=== PATIENT | female | born 1970 | race Two or more races ===

== ENCOUNTER 2017-09-23 08:01 | Emergency (ER) | payer OTHER ==
[~2017-09-23] VITALS: Ht 167.6 cm; Wt 68.5 kg
--- NOTE | 2017-09-23 08:07 | NUR ---
AAOX3, BIB FAMILY C/O L FLANK PAIN S/P HYSTERECTOMY X 10 DAYS AGO, CAME IN WITH THIBODEAUX CATHETER IN PLACE. RR IS EVEN AND UNLABORED WITH NAD NOTED. SKIN IS WARM AND DRY. AWAITING MD FOR EVAL.
--- NOTE | 2017-09-23 08:13 | NUR ---
DR TALBERT AT BS FOR EVAL.
[2017-09-23] MEDS ORDERED: ONDANSETRON HCL/PF 4 MG/2 ML VIAL ONE (08:21)
[2017-09-23] MEDS ORDERED: HYDROMORPHONE INJ 0.5 MG/0.5 ML SYRINGE ONE (08:21)
--- NOTE | 2017-09-23 08:44 | NUR ---
URINE OBTAINED SENT TO THE LAB.
--- NOTE | 2017-09-23 08:46 | NUR ---
LOG SORTER AT
[2017-09-23 08:50] LABS: BASOPHILS # (AUTO) 0.1 /CMM (0.0-0.2); BASOPHILS % (AUTO) 0.5 % (0.0-2.0); EOSINOPHILS # (AUTO) 0.8 /CMM (0.0-0.7); HEMATOCRIT 39 % (33-45); HEMOGLOBIN 13.3 g/dL (11.5-14.8); LYMPHOCYTES # (AUTO) 1.3 /CMM (0.8-4.8); LYMPHOCYTES % (AUTO) 7.7 % (20.0-44.0); MEAN CORPUSCULAR HEMOGLOBIN 30 PG (26.0-33.0); MEAN CORPUSCULAR HGB CONC 35 g/dl (31.0-36.0); MEAN CORPUSCULAR VOLUME 87 fL (82-100); MONOCYTES # (AUTO) 0.8 /CMM (0.1-1.30); MONOCYTES % (AUTO) 5.1 % (2.0-12.0); NEUTROPHILS # (AUTO) 13.3 /CMM (1.8-8.9); NEUTROPHILS % (AUTO) 81.7 % (43.0-81.0); PLATELET COUNT (AUTO) 299 /CMM (150-450); RDW COEFFICIENT OF VARIATION 13.2 (11.5-15.0); RED BLOOD CELL COUNT(AUTO) 4.42 MIL/uL (4.0-5.2); WHITE BLOOD COUNT (AUTO) 16.3 K/uL (4.3-11.0)
[2017-09-23 08:50] LABS: APPEARANCE,URINE CLOUDY (CLEAR); BILIRUBIN,URINE 1+ (NEGATIVE); BLOOD, URINE 3+ Ery/uL (NEGATIVE); COLOR,URINE DARK YELLO (YELLOW); KETONES,URINE TRACE (NEGATIVE); LEUKOCYTE ESTERASE ,URINE 1+ (NEGATIVE); NITRITE, URINE NEGATIVE (NEGATIVE); PH,URINE 5.5 (5.0-8.0); PROTEIN,URINE 2+ mg/dl (NEGATIVE); UGLUCOSE NEGATIVE (NEGATIVE); UROBILINOGEN,URINE 0.2 EU/dL (0.2)
[2017-09-23] MEDS ORDERED: ONDANSETRON HCL/PF 4 MG/2 ML VIAL IVP ONE (09:00)
[2017-09-23] MEDS ORDERED: HYDROMORPHONE INJ 2 MG/ML DISP.SYRIN IV ONE (09:00)
[2017-09-23 09:14] LABS: BACTERIA,URINE Moderate /HPF (None Seen); SQUAMOUS EPITHELIAL CELL,UR Few /HPF (None Seen)
[2017-09-23 09:15] LABS: INR 1.09 (0.87-1.13)
[2017-09-23 09:15] LABS: RBC,URINE 51-80 /HPF (0-2)
[2017-09-23 09:16] LABS: MUCUS,URINE Moderate /LPF (None Seen)
[2017-09-23 09:21] LABS: CALCIUM, SERUM 9.4 mg/dL (8.5-10.1); CREATININE 0.6 mg/dL (0.6-1.3); POTASSIUM 4.4 mmol/L (3.5-5.1)
[2017-09-23 09:26] LABS: ALBUMIN 3.2 g/dL (3.4-5.0); BILIRUBIN,DIRECT 0.1 mg/dL (0.0-0.2); BILIRUBIN,TOTAL 0.9 mg/dL (0.2-1.0); TOTAL PROTEIN, SERUM 7.3 g/dL (6.4-8.2)
[2017-09-23] MEDS ORDERED: CEFTRIAXONE 1GM BAG (ER ONLY) 1 GM/50 ML PIGGYBACK IV ONE (10:30)
[2017-09-23] MEDS ORDERED: CEFTRIAXONE 1GM BAG (ER ONLY) 50 ML IV ONE (10:34)
--- NOTE | 2017-09-23 10:56 | NUR ---
IV removed. Catheter intact and site benign. Pressure and 4x4 applied to site. No bleeding noted.
[2017-09-23 11:08] VITALS: BP 124/75
--- NOTE | 2017-09-23 11:10 | NUR ---
PATIENT WAS ABLE TO VOID IN THE RESTROOM. DR TALBERT MADE AWARE.
--- NOTE | 2017-09-23 11:15 | NUR ---
Patient discharged to home in stable condition. Written and verbal after care instructions given. Patient verbalizes understanding of instruction.
== END 2017-09-23 11:09 | disposition home or self-care (01) ==
LOC: ER 08:02
DX: S39.012A Strain of muscle, fascia and tendon of lower back, initial encounter (principal); N39.0 Urinary tract infection, site not specified; N13.30 Unspecified hydronephrosis; C53.9 Malignant neoplasm of cervix uteri, unspecified; G43.909 Migraine, unspecified, not intractable, without status migrainosus; Z90.710 Acquired absence of both cervix and uterus; X58.XXXA Exposure to other specified factors, initial encounter; Y93.89 Activity, other specified; Y92.89 Other specified places as the place of occurrence of the external cause; Y99.8 Other external cause status
CPT/HCPCS: 36415; 71045; 76700; 80048; 80076; 81001; 83690; 85025; 85730; 87086; 96365; 96375; 99285; A4606; J0696; J2405; Z7610; 81000-TC

== ENCOUNTER 2018-01-10 21:17 | Emergency (ER) | payer OTHER ==
[~2018-01-10] VITALS: Ht 170.2 cm; Wt 69.9 kg
--- NOTE | 2018-01-10 21:25 | NUR ---
BIBFAMILY C/O BURNING LIKE PAIN TO PELVIC. CHEM RADIATION ON MONDAY RECENT HYSTERECTOMY ON SEP 2017. NAD NOTED, VSS, RESP EVEN AND UNLABORED, PT WAS PUT ON MONITOR, AT BS.
[2018-01-10] MEDS ORDERED: MORPHINE SULFATE INJ 4 MG/ML DISP.SYRIN ONE (21:45)
[2018-01-10] MEDS ORDERED: ONDANSETRON HCL/PF 4 MG/2 ML VIAL ONE (21:45)
[2018-01-10 22:02] LABS: BASOPHILS % (AUTO) 0.2 % (0.0-2.0); EOSINOPHILS % (AUTO) 1.4 % (0.0-6.0); HEMATOCRIT 30 % (33-45); HEMOGLOBIN 10.5 g/dL (11.5-14.8); LYMPHOCYTES # (AUTO) 0.2 /CMM (0.8-4.8); LYMPHOCYTES % (AUTO) 5.2 % (20.0-44.0); MEAN CORPUSCULAR HGB CONC 36 g/dl (31.0-36.0); MEAN CORPUSCULAR VOLUME 84 fL (82-100); MONOCYTES # (AUTO) 0.3 /CMM (0.1-1.30); MONOCYTES % (AUTO) 8.3 % (2.0-12.0); NEUTROPHILS # (AUTO) 3.5 /CMM (1.8-8.9); NEUTROPHILS % (AUTO) 84.9 % (43.0-81.0); PLATELET COUNT (AUTO) 159 /CMM (150-450); RDW COEFFICIENT OF VARIATION 15.9 (11.5-15.0); RED BLOOD CELL COUNT(AUTO) 3.54 MIL/uL (4.0-5.2); WHITE BLOOD COUNT (AUTO) 4.1 K/uL (4.3-11.0)
[2018-01-10] MEDS: IV NS 0.9% 500 ML BAG IV ONE (22:09)
[2018-01-10] MEDS: ONDANSETRON HCL/PF 4 MG/2 ML VIAL IVP ONE (22:10)
[2018-01-10] MEDS: MORPHINE SULFATE INJ 2 MG/ML DISP.SYRIN IV ONE (22:10)
[2018-01-10 22:14] LABS: CALCIUM, SERUM 8.8 mg/dL (8.5-10.1); CREATININE 0.8 mg/dL (0.6-1.3); POTASSIUM 3.2 mmol/L (3.5-5.1)
[2018-01-10 22:20] LABS: ALBUMIN 3.5 g/dL (3.4-5.0); BILIRUBIN,DIRECT 0.1 mg/dL (0.0-0.2); BILIRUBIN,TOTAL 0.7 mg/dL (0.2-1.0); TOTAL PROTEIN, SERUM 7.3 g/dL (6.4-8.2)
[2018-01-10 23:11] LABS: APPEARANCE,URINE SL CLOUDY (CLEAR); BILIRUBIN,URINE NEGATIVE (NEGATIVE); BLOOD, URINE 2+ Ery/uL (NEGATIVE); COLOR,URINE YELLOW (YELLOW); KETONES,URINE 1+ (NEGATIVE); LEUKOCYTE ESTERASE ,URINE 2+ (NEGATIVE); NITRITE, URINE POSITIVE (NEGATIVE); PH,URINE 6.5 (5.0-8.0); PROTEIN,URINE 2+ mg/dl (NEGATIVE); UGLUCOSE NEGATIVE (NEGATIVE); UROBILINOGEN,URINE 0.2 EU/dL (0.2)
[2018-01-10 23:20] LABS: BACTERIA,URINE Moderate /HPF (None Seen); SQUAMOUS EPITHELIAL CELL,UR Few /HPF (None Seen); WBC,URINE 21-50 /HPF (0-3)
--- NOTE | 2018-01-10 23:42 | NUR ---
Patient discharged to home in stable condition. Written and verbal after care instructions given. Patient verbalizes understanding of instruction.IV removed. Catheter intact and site benign. Pressure and 4x4 applied to site. No bleeding noted. VSS UPON DISCHARGE
[2018-01-10 23:43] VITALS: BP 117/65
== END 2018-01-10 23:44 | disposition home or self-care (01) ==
LOC: ER 21:21
DX: N39.0 Urinary tract infection, site not specified (principal); K59.00 Constipation, unspecified; E87.6 Hypokalemia; G43.909 Migraine, unspecified, not intractable, without status migrainosus; Z85.41 Personal history of malignant neoplasm of cervix uteri; Z92.3 Personal history of irradiation; Z90.710 Acquired absence of both cervix and uterus
CPT/HCPCS: 36415; 80048-TC; 80076-TC; 81000-TC; 85025-TC; 87086-TC; 87186-TC; A4606; J2270; J2405; J7040; Z7610

== ENCOUNTER 2018-07-05 12:42 | Emergency (ER) | payer OTHER ==
[~2018-07-05] VITALS: Ht 167.6 cm; Wt 72.6 kg
--- NOTE | 2018-07-05 12:42 | NUR ---
PT BIB FAMILY C/O LEFT SIDED CP, NO C/O OF DIZZINESS, NO SOB, RESPIRATIONS EVEN AND UNLABORED, NAD NOTED, VSS, PENDING MD GARG.
[2018-07-05 13:22] LABS: BASOPHILS % (AUTO) 0.9 % (0.0-2.0); EOSINOPHILS % (AUTO) 3.9 % (0.0-6.0); HEMATOCRIT 37 % (33-45); HEMOGLOBIN 12.5 g/dL (11.5-14.8); LYMPHOCYTES # (AUTO) 1.1 /CMM (0.8-4.8); LYMPHOCYTES % (AUTO) 22.4 % (20.0-44.0); MEAN CORPUSCULAR HGB CONC 34 g/dl (31.0-36.0); MEAN CORPUSCULAR VOLUME 89 fL (82-100); MONOCYTES # (AUTO) 0.4 /CMM (0.1-1.30); MONOCYTES % (AUTO) 8.5 % (2.0-12.0); NEUTROPHILS # (AUTO) 3.3 /CMM (1.8-8.9); NEUTROPHILS % (AUTO) 64.3 % (43.0-81.0); PLATELET COUNT (AUTO) 213 /CMM (150-450); RED BLOOD CELL COUNT(AUTO) 4.13 MIL/uL (4.0-5.2); WHITE BLOOD COUNT (AUTO) 5.1 K/uL (4.3-11.0)
[2018-07-05 13:52] LABS: CALCIUM, SERUM 9.3 mg/dL (8.5-10.1); CARBON DIOXIDE 27 mmol/L (21-32); CHLORIDE 105 mmol/L (98-107); CREATININE 0.7 mg/dL (0.6-1.3); GLUCOSE 91 mg/dL (74-106); POTASSIUM 3.9 mmol/L (3.5-5.1); SODIUM SERUM 143 mmol/L (136-145); UREA NITROGEN, BLOOD 13 mg/dL (7-18)
[2018-07-05 14:05] LABS: B-TYPE NATRIURETIC PEPTIDE 103 PG/ML (0-125)
[2018-07-05] MEDS ORDERED: IBUPROFEN 600 MG TABLET PO ONE ×2 (14:57→15:00)
--- NOTE | 2018-07-05 15:00 | NUR ---
Patient discharged to home in stable condition. Written and verbal after care instructions given. Patient verbalizes understanding of instruction.
[2018-07-05 15:35] VITALS: BP 130/75
== END 2018-07-05 15:37 | disposition home or self-care (01) ==
LOC: ER 12:44
DX: M94.0 Chondrocostal junction syndrome [Tietze] (principal); G43.909 Migraine, unspecified, not intractable, without status migrainosus; Z85.41 Personal history of malignant neoplasm of cervix uteri; Z90.710 Acquired absence of both cervix and uterus
CPT/HCPCS: 36415; 71046; 80048; 83880; 84484; 85025; 85378; 93005; 99284; A4606; Z7610

== ENCOUNTER 2019-09-17 19:20 | Emergency (ER) | payer OTHER ==
[~2019-09-17] VITALS: Ht 162.6 cm; Wt 77.1 kg
--- NOTE | 2019-09-17 19:25 | NUR ---
BIBDAUGHTER C/O MIDSTERNAL CHEST PAIN X2 DAYS.ALSO C/O L SIDE PAIN X2 WEEKS -TRAUMA, +SOB, +HEADACHE, -NAUSEA/VOMITTING
--- NOTE | 2019-09-17 19:29 | NUR ---
BALA GARVIN PAC AT THE BED SIDE
--- NOTE | 2019-09-17 19:40 | NUR ---
L HAND 20G IV STARTED. BLOOD DRAWN AND SENT TO THE LAB
[2019-09-17] MEDS ORDERED: IBUPROFEN 600 MG TABLET PO ONE ×2 (19:44→20:00)
[2019-09-17 19:50] LABS: BASOPHILS # (AUTO) 0.1 /CMM (0.0-0.2); BASOPHILS % (AUTO) 1.3 % (0.0-2.0); EOSINOPHILS % (AUTO) 3.3 % (0.0-6.0); HEMATOCRIT 40 % (33-45); HEMOGLOBIN 13.6 g/dL (11.5-14.8); LYMPHOCYTES # (AUTO) 2.2 /CMM (0.8-4.8); LYMPHOCYTES % (AUTO) 33.2 % (20.0-44.0); MEAN CORPUSCULAR HGB CONC 34 g/dl (31.0-36.0); MEAN CORPUSCULAR VOLUME 87 fL (82-100); MONOCYTES # (AUTO) 0.6 /CMM (0.1-1.30); MONOCYTES % (AUTO) 8.6 % (2.0-12.0); NEUTROPHILS # (AUTO) 3.6 /CMM (1.8-8.9); NEUTROPHILS % (AUTO) 53.6 % (43.0-81.0); PLATELET COUNT (AUTO) 249 /CMM (150-450); RED BLOOD CELL COUNT(AUTO) 4.56 MIL/uL (4.0-5.2); WHITE BLOOD COUNT (AUTO) 6.7 K/uL (4.3-11.0)
--- NOTE | 2019-09-17 19:50 | NUR ---
PT SIGNED THE WAIVER FORM. REPORTED HYSTRECTOMY 2 YRS AGO. RADIOLOGY MADE AWARE TO PROCEED W/ THE CXR
[2019-09-17 19:59] LABS: CALCIUM, SERUM 9.9 mg/dL (8.5-10.1); CARBON DIOXIDE 27 mmol/L (21-32); CHLORIDE 105 mmol/L (98-107); CREATININE 0.8 mg/dL (0.6-1.3); GLUCOSE 94 mg/dL (74-106); POTASSIUM 3.6 mmol/L (3.5-5.1); SODIUM SERUM 142 mmol/L (136-145); UREA NITROGEN, BLOOD 16 mg/dL (7-18)
[2019-09-17 20:05] LABS: ALANINE AMINOTRANSFERASE 24 U/L (12-78); ALBUMIN 3.9 g/dL (3.4-5.0); ALKALINE PHOSPHATASE 84 U/L (46-116); ASPARTATE AMINOTRANSFERASE 16 U/L (15-37); BILIRUBIN,DIRECT 0.1 mg/dL (0.0-0.2); BILIRUBIN,TOTAL 0.4 mg/dL (0.2-1.0); TOTAL PROTEIN, SERUM 7.5 g/dL (6.4-8.2)
[2019-09-17 21:08] VITALS: BP 128/82
--- NOTE | 2019-09-17 21:08 | NUR ---
Patient discharged to home in stable condition. Written and verbal after care instructions given. Patient verbalizes understanding of instruction.IV removed. Catheter intact and site benign. Pressure and 4x4 applied to site. No bleeding noted.Pt ambulatory with a steady gait
== END 2019-09-17 21:09 | disposition home or self-care (01) ==
LOC: ER 19:23
DX: R07.89 Other chest pain (principal); G43.909 Migraine, unspecified, not intractable, without status migrainosus; Z85.41 Personal history of malignant neoplasm of cervix uteri; Z90.710 Acquired absence of both cervix and uterus
CPT/HCPCS: 36415; 71045-TC; 80048-TC; 80076-TC; 83690-TC; 84484-TC; 85025-TC

== ENCOUNTER 2020-11-12 10:47 | Inpatient (IN) | payer OTHER ==
[~2020-11-12] VITALS: Ht 167.6 cm; Wt 81.8 kg
[2020-11-12] MEDS ORDERED: ONDANSETRON HCL/PF - ER 4 MG/2 ML VIAL IV ONE ×2 (11:30→13:30)
--- NOTE | 2020-11-12 11:46 | NUR ---
BLOOD SPECIMEN COLLECTED AND SENT TO THE LAB.
--- NOTE | 2020-11-12 11:47 | NUR ---
THE PATIENT IS BIB HER SON FOR RLQ PAIN AND NAUSEA SINCE THIS MORNING. THE PATIENT RATES PAIN 10/10. THE PATIENT IS ALERT AND ORIENTED X4. DENIES SOB. RESPIRATION REGULAR AND UNLABORED. THE PATIENT IS IN ER BED #7. WARM BLANKET PROVIDED FOR COMFORT. WILL CONTINUE TO MONITOR.
--- NOTE | 2020-11-12 11:48 | NUR ---
THE PATIENT REFUSES ANY PAIN MEDICATION AT THIS TIME DESPITE THAT DR FLETCHER OFFERED.
[2020-11-12] MEDS ORDERED: ONDANSETRON HCL/PF 4 MG/2 ML VIAL ONE ×2 (11:50→13:18)
[2020-11-12 11:53] LABS: BASOPHILS # (AUTO) 0.1 /CMM (0.0-0.2); BASOPHILS % (AUTO) 0.5 % (0.0-2.0); EOSINOPHILS % (AUTO) 0.2 % (0.0-6.0); HEMATOCRIT 40 % (33-45); HEMOGLOBIN 13.6 g/dL (11.5-14.8); LYMPHOCYTES % (AUTO) 7.8 % (20.0-44.0); MEAN CORPUSCULAR HGB CONC 34 g/dl (31.0-36.0); MEAN CORPUSCULAR VOLUME 89 fL (82-100); MONOCYTES # (AUTO) 0.4 /CMM (0.1-1.30); MONOCYTES % (AUTO) 3.6 % (2.0-12.0); NEUTROPHILS # (AUTO) 10.9 /CMM (1.8-8.9); NEUTROPHILS % (AUTO) 87.9 % (43.0-81.0); PLATELET COUNT (AUTO) 231 /CMM (150-450); RED BLOOD CELL COUNT(AUTO) 4.54 MIL/uL (4.0-5.2); WHITE BLOOD COUNT (AUTO) 12.4 K/uL (4.3-11.0)
[2020-11-12 12:06] LABS: CALCIUM, SERUM 9.7 mg/dL (8.5-10.1); CARBON DIOXIDE 24 mmol/L (21-32); CHLORIDE 105 mmol/L (98-107); CREATININE 0.7 mg/dL (0.6-1.3); GLUCOSE 112 mg/dL (74-106); POTASSIUM 3.8 mmol/L (3.5-5.1); SODIUM SERUM 140 mmol/L (136-145); UREA NITROGEN, BLOOD 13 mg/dL (7-18)
[2020-11-12 12:13] LABS: ALANINE AMINOTRANSFERASE 26 U/L (12-78); ALBUMIN 3.8 g/dL (3.4-5.0); ALKALINE PHOSPHATASE 66 U/L (46-116); ASPARTATE AMINOTRANSFERASE 20 U/L (15-37); BILIRUBIN,DIRECT 0.1 mg/dL (0.0-0.2); BILIRUBIN,TOTAL 0.6 mg/dL (0.2-1.0); LIPASE 123 U/L (73-393); TOTAL PROTEIN, SERUM 7.4 g/dL (6.4-8.2)
[2020-11-12] MEDS ORDERED: OMEP20CA15 PO (12:59)
[2020-11-12] MEDS ORDERED: PIPERACILLIN /TAZOBACTAM 3.375 G in IV D5W 50 ML IV ONE (13:00)
[2020-11-12] MEDS ORDERED: MORPHINE SULFATE INJ 4 MG/ML DISP.SYRIN ONE (13:19)
--- NOTE | 2020-11-12 13:28 | NUR ---
MORPHINE 4 MG IV, ZOFRAN 4 MG IV AND NS 1000 ML WIDE OPEN ORDERED BY DR FLETCHER. THE ORDER ARE READ BACK, VERIFIED. NOTED AND CARRIED OUT.
[2020-11-12] MEDS ORDERED: IV NS 0.9% 1,000 ML IV ONE (13:30)
[2020-11-12] MEDS ORDERED: MORPHINE SULFATE INJ 2 MG/ML DISP.SYRIN IV ONE (13:30)
--- NOTE | 2020-11-12 14:33 | NUR ---
DR SMITH`S ADMINISTRATIVE HEARING OFFICER (RJ) IS AT THE BEDSIDE.
--- NOTE | 2020-11-12 14:44 | NUR ---
Informed electrician supervisor substation that patient is covid negative and need bed. Agitator Operator will inform bed number once available.
--- NOTE | 2020-11-12 15:20 | NUR ---
report given to lamine lópez for abraham
--- NOTE | 2020-11-12 15:23 | NUR ---
The patient is tarnsfered to bed 313 in stable condition.
[2020-11-12 15:40] VITALS: BP 136/58
--- NOTE | 2020-11-12 15:40 | NUR ---
MS RN NOTES ADMITTED PATIENT FROM EMERGENCY ROOM, REPORT GIVEN REBECCA DICKERSON. PATIENT ALERT AND ORIENTED X4, NO ACUTE DISTRESS NOTED, DENIED PAIN AT THIS TIME. IV ACCESS PATENT AND INTACT, NO REDNESS, NO SWELLING. PATIENT ORIENTED TO THE ROOM, SHOWED PATIENT HOW TO USE CALL LIGHT AND PLACED WITHIN REACH. NEEDS ATTENDED. SAFETY MEASURES IN PLACE, BED LOCKED IN LOWEST POSITION. WILL CONTINUE TO MONITOR
--- NOTE | 2020-11-12 16:15 | NUR ---
MS RN NOTES NOTIFIED DR. HERNANDEZ OF PATIENT ARRIVAL IN UNIT AND NEEDS ADMISSION ORDERS AND MED RECONCILIATION NEEDS TO BE DONE.
[2020-11-12] MEDS ORDERED: MAG HYDROX/AL HYDROX/SIMETH 30 ML UDC PO PRN (17:00)
[2020-11-12] MEDS ORDERED: ACETAMINOPHEN 325 MG TABLET PO PRN (17:00)
[2020-11-12] MEDS ORDERED: ZOLPIDEM TARTRATE 5 MG TABLET PO PRN (17:00)
[2020-11-12] MEDS ORDERED: Z GUARD REMEDY 2 OZ OINT TP PRN (17:00)
[2020-11-12] MEDS ORDERED: HYDROCODONE/APAP 5/325MG TABLET PO PRN (17:00)
[2020-11-12] MEDS ORDERED: MAGNESIUM HYDROXIDE 30 ML UDC PO PRN (17:00)
[2020-11-12] MEDS: IV D5/0.45 NACL 1,000 ML IV PRN (17:19)
[2020-11-12] MEDS: PIPERACILLIN /TAZOBACTAM 3.375 G in IV D5W 100 ML IV SCH (18:17)
--- NOTE | 2020-11-12 19:00 | NUR ---
MS CLOSING NOTES PATIENT RESTING IN ROOM, ALERT AND ORIENTED X 4. NO ACUTE DISTRESS OR SHORTNESS OF BREATH NOTED. IV CLEAN, DRY AND INTACT AND INFUSING. SAFETY MEASURES IN PLACE, BED LOCKED IN LOWEST POSITION AND CALL LIGHT WITHIN REACH. WILL ENDORSE TO IT APPLICATION ADMINISTRATOR NURSE FOR CONTINUITY OF CARE.
--- NOTE | 2020-11-12 19:30 | NUR ---
MS RN OPENING NOTE RECEIVED PATIENT IN BED. A/OX4. TOLERATING ROOM AIR. RESPIRATIONS ARE EVEN AND UNLABORED. NO S/S SOB NOTED. C/O PAIN IN ABDOMEN WILL ADMINISTER PAIN MEDICATION. IN NO APPARENT DISTRESS. IV ACCESS IN LEFT HAND #20 RUNNING D51/2NS@125ML/HR. BED IS LOW AND LOCKED, HOB ELEVATED IN SEMI FOWLERS, SIDE RAILS UP X2, CALL LIGHT WITHIN REACH. WILL CONTINUE TO MONITOR THROUGHOUT SHIFT.
[2020-11-12] MEDS: ONDANSETRON HCL/PF 4 MG/2 ML VIAL IVP PRN (19:38)
[2020-11-12] MEDS: HYDROMORPHONE INJ 2 MG/ML DISP.SYRIN IV PRN (19:45)
[2020-11-12 20:00] VITALS: BP 115/75
[2020-11-13] VITALS: BP 126/75
[2020-11-13] MEDS: PIPERACILLIN /TAZOBACTAM 3.375 G in IV D5W 100 ML IV SCH ×3 (01:50→17:47)
[2020-11-13] MEDS: HYDROMORPHONE INJ 2 MG/ML DISP.SYRIN IV PRN (02:13)
[2020-11-13 04:00] VITALS: BP 119/69
[2020-11-13 06:15] LABS: RED BLOOD CELL COUNT(AUTO) 4.38 MIL/uL (4.0-5.2); WHITE BLOOD COUNT (AUTO) 14.2 K/uL (4.3-11.0)
[2020-11-13 06:16] LABS: BASOPHILS % (AUTO) 0.1 % (0.0-2.0); HEMATOCRIT 39 % (33-45); HEMOGLOBIN 12.7 g/dL (11.5-14.8); LYMPHOCYTES % (AUTO) 7.3 % (20.0-44.0); MEAN CORPUSCULAR HGB CONC 33 g/dl (31.0-36.0); MEAN CORPUSCULAR VOLUME 88 fL (82-100); MONOCYTES # (AUTO) 0.6 /CMM (0.1-1.30); MONOCYTES % (AUTO) 4.1 % (2.0-12.0); NEUTROPHILS # (AUTO) 12.5 /CMM (1.8-8.9); NEUTROPHILS % (AUTO) 88.5 % (43.0-81.0); PLATELET COUNT (AUTO) 227 /CMM (150-450)
[2020-11-13] MEDS: IV D5/0.45 NACL 1,000 ML IV PRN ×2 (06:35→17:30)
[2020-11-13 06:36] LABS: CALCIUM, SERUM 8.6 mg/dL (8.5-10.1); CREATININE 0.7 mg/dL (0.6-1.3); MAGNESIUM 1.9 mg/dL (1.8-2.4); PHOSPHORUS 3.2 mg/dL (2.5-4.9); POTASSIUM 3.3 mmol/L (3.5-5.1)
--- NOTE | 2020-11-13 06:51 | NUR ---
MS RN CLOSING NOTE PATIENT IN BED. A/OX4. TOLERATING ROOM AIR. NO RESP DISTRESS. MANAGED PAIN WITH DILAUDID THROUGHOUT SHIFT. PATIENT DID EXPERIENCE N EPISODE OF GREEN LIQUID EMESIS , MANAGED WITH ZOFRAN. IV ACCESS IN LEFT HAND #20 RUNNING D51/2NS@125ML/HR. BED IS LOW AND LOCKED, HOB ELEVATED IN SEMI FOWLERS, SIDE RAILS UP X2, CALL LIGHT WITHIN REACH. WILL ENDORSE TO ONCOMING SHIFT.
--- NOTE | 2020-11-13 07:02 | NUR ---
MS RN OPENING NOTE RECEIVED PATIENT AWAKE IN BED. A/OX4. PT STABLE ON ROOM AIR.NO S/S SOB NOTED. NO S/S OF RESPIRATORY DISTRESS. PT IS AMBULATORY WITH BRP. PT HAS NO C/O PAIN AT THIS TIME. IV ACCESS IN LEFT HAND #20 RUNNING D5 1/2 NS@ 125 ML/HR. IV IS INTACT AND PATENT. SAFETY MEASURES MAINTAINED. BED IN LOWEST LOCKED POSITION. HOB ELEVATED, SIDE RAILS UP X2, CALL LIGHT AND TABLE WITHIN REACH. WILL CONTINUE WITH PLAN OF CARE.
[2020-11-13 08:00] VITALS: BP 125/75
--- NOTE | 2020-11-13 09:19 | NUR ---
PT C/O OF ACHING MIGRAINE HEADACHE ON A SCALE OF 9/10. VS BP 125/75, HR 86, RR 20, T 98.8, SPO2 94%. PT REFUSED PAIN MEDICATION STATING "I TAKE SUMATRIPTAN 50MG PO PRN FOR MIGRAINE." DR FUNG MADE AWARE. RECEIVED ORDERS FROM DR FUNG TO CONTINUE SUMATRIPTAN. ORDERS CARRIED OUT WILL CONTINUE TO MONITOR
--- NOTE | 2020-11-13 09:24 | NUR ---
PRISCILA ([phone]), PT'S DAUGHTER BROUGHT SUMATRIPTAN 50MG (5 TABLETS) AND ADVIL (7 TABLETS). MEDICATION GIVEN TO PHARMACY. WILL CONTINUE WITH PLAN OF CARE
[2020-11-13] MEDS: SUMATRIPTAN SUCCINATE 25 MG TABLET PO PRN (09:46)
--- NOTE | 2020-11-13 10:35 | NUR ---
PT'S POTASSIUM 3.3. RECEIVED ORDERS FROM DR. FUNG TO ADMINISTER KCL 20 MEQ IV. ORDERS READ BACK AND CARRIED OUT. WILL CONTINUE TO MONITOR.
[2020-11-13] MEDS ORDERED: POTASSIUM CHLORIDE 10 MEQ/50 ML PREMIXED IVPB FOR PERIPHERAL LINE IV SCH ×2 (11:00)
[2020-11-13] MEDS ORDERED: POTASSIUM CL. PREMIX PERIPHER. 50 ML IV SCH (11:00)
[2020-11-13] MEDS: POTASSIUM CL. PREMIX PERIPHER. 50 ML IV SCH ×2 (11:25→12:39)
[2020-11-13] MEDS ORDERED: ANESTHESIA TRAY IN PYXIS 1 EA TRAY MC ONE (12:51)
[2020-11-13] MEDS ORDERED: BUPIVACAINE MPF 0.5% W/EPI INJ 30 ML VIAL ONE (12:52)
[2020-11-13] MEDS ORDERED: BUPIVACAINE 0.5 % PF 150 MG/30 ML VIAL ONE (12:52)
[2020-11-13] MEDS ORDERED: LIDOCAINE HCL/PF 1% 30 ML SDV ONE (12:52)
--- NOTE | 2020-11-13 12:57 | NUR ---
PATIENT LEFT UNIT VIA GURNEY TO SURGERY.
[2020-11-13] MEDS ORDERED: FENTANYL PF 250MCG/5ML AMPUL ONE (13:07)
[2020-11-13] MEDS ORDERED: MIDAZOLAM HCL 2 MG/2ML VIAL ONE (13:08)
[2020-11-13] MEDS ORDERED: HYDROMORPHONE INJ 2 MG/ML DISP.SYRIN ONE (13:08)
[2020-11-13] MEDS ORDERED: BUPIVACAINE MPF W/EPI 0.25% 30 ML VIAL ONE (13:26)
[2020-11-13] MEDS ORDERED: LIDOCAINE HCL/MPF 1% 30 ML VIAL IJ ONE (14:14)
[2020-11-13] MEDS ORDERED: ONDANSETRON HCL/PF 4 MG/2 ML VIAL ONE (15:42)
--- NOTE | 2020-11-13 16:20 | NUR ---
PT TRANSPORTED BY BED TO UNIT AT THIS TIME FROM OR. S/P LAPAROSCOPIC APPENDECTOMY POSSIBLE OPEN. RECEIVED BEDSIDE REPORT FROM REBECCA FUENTES @OR. VS BP 114/68, HR 79, RR 18, T 97.8, SPO2 93% ON RA. PT SLEEPING INTERMITTENTLY AND EASY TO AROUSE. NOTED WITH SREE, DRAINING TO GRAVITY BRIGHT RED FLUID, TWO STERILE STRIPS ON ABDOMEN, BOTH INTACT,DRY AND NO BLEEDING NOTED. Addendum: 11/13/20 at 1650 by MINA DOWNEY RN PT TRANSPORTED BY BED TO UNIT AT THIS TIME FROM OR. S/P LAPAROSCOPIC APPENDECTOMY POSSIBLE OPEN. RECEIVED BEDSIDE REPORT FROM REBECCA FUENTES @OR. VS BP 114/68, HR 79, RR 18, T 97.8, SPO2 93% ON RA. PT SLEEPING INTERMITTENTLY AND EASY TO AROUSE. NOTED WITH SREE, DRAINING TO GRAVITY BRIGHT RED FLUID, TWO STERILE STRIPS ON ABDOMEN, BOTH INTACT,DRY AND NO BLEEDING NOTED. WILL CONTINUE TO MONITOR
[2020-11-13 16:35] VITALS: BP 102/60
--- NOTE | 2020-11-13 18:38 | NUR ---
PT IS AWAKE IN BED AT THIS TIME. A/O X4. PT STABLE ON ROOM AIR. NO SOB NOTED. NO S/O OF RESPIRATORY DISTRESS. IV ACCESS IS INTACT, PATENT, AND FLUSHING WELL. ALL NEEDS HAVE BEEN MET. PAIN MANAGEMENT ADMINISTERED PER ORDER. SAFETY PRECAUTIONS MAINTAINED AT ALL TIMES, BED IN LOWEST LOCKED POSITION, SIDE RAILS UP X2. CALL LIGHT AND TABLE WITHIN REACH. WILL ENDORSE TO [facility] NIGHT NURSE FOR CONTINUITY OF CARE. Addendum: 11/13/20 at 1842 by PROSPER JIM RN RN CLOSING NOTE PT IS AWAKE IN BED AT THIS TIME. A/O X4. PT STABLE ON ROOM AIR. NO SOB NOTED. NO S/O OF RESPIRATORY DISTRESS. IV ACCESS IS INTACT, PATENT, AND FLUSHING WELL. ALL NEEDS HAVE BEEN MET. PAIN MANAGEMENT ADMINISTERED PER ORDER. SAFETY PRECAUTIONS MAINTAINED AT ALL TIMES, BED IN LOWEST LOCKED POSITION, SIDE RAILS UP X2. CALL LIGHT AND TABLE WITHIN REACH. WILL ENDORSE TO [facility] NIGHT NURSE FOR CONTINUITY OF CARE.
[2020-11-13 20:00] VITALS: BP 109/64
--- NOTE | 2020-11-13 20:31 | NUR ---
MS/TELE/RN AT INITIAL SHIFT ROUNDING, PATIENT WAS IN BED AWAKE, ALERT, ORIENTED, S/P LAPAROSCOPIC APPENDECTOMY TODAY, LAP SITES IN ABDOMEN NOTED, WITH SOME DRY BLOOD, OTHERWISE, CLEAN AND INTACT, PATIENT WAS COMFORTABLE, NO C/O PAIN, NO DISTRESS NOTED, CALL LIGHT IN REACH. WILL MONITOR.
--- NOTE | 2020-11-14 00:24 | NUR ---
MS/TELE/RN PATIENT IS SLEEPING AT THIS TIME, APPEAR COMFORTABLE, NO SIGNS OF DISTRESS NOTED, CALL LIGHT IN REACH, WILL CONTINUE TO MONITOR.
[2020-11-14] MEDS: PIPERACILLIN /TAZOBACTAM 3.375 G in IV D5W 100 ML IV SCH ×3 (01:45→17:05)
[2020-11-14] MEDS: SUMATRIPTAN SUCCINATE 25 MG TABLET PO PRN (02:07)
--- NOTE | 2020-11-14 02:14 | NUR ---
MS/TELE/RN AWAKE, ASSISTED TO THE BATHROOM AND BACK TO BED, TOLERATED. C/O HEADACHE DUE TO MIGRAINE, PER PATIENT, REQUESTED HER IMITREX. IMETRIX 50 MG PO WAS GIVEN ORDERED. WILL MONITOR.
[2020-11-14] MEDS: IV D5/0.45 NACL 1,000 ML IV PRN ×2 (03:39→12:00)
--- NOTE | 2020-11-14 06:04 | NUR ---
MS/TELE/RN PATIENT IS SLEEPING AT THIS TIME, APPEAR COMFORTABLE, NO SIGNS OF DISTRESS NOTED, CALL LIGHT IN REACH, ALL NEEDS ATTENDED AT THIS TIME, WILL CONTINUE TO MONITOR.
[2020-11-14 06:51] LABS: BASOPHILS % (AUTO) 0.3 % (0.0-2.0); EOSINOPHILS % (AUTO) 0.1 % (0.0-6.0); HEMATOCRIT 37 % (33-45); HEMOGLOBIN 12.4 g/dL (11.5-14.8); LYMPHOCYTES # (AUTO) 1.2 /CMM (0.8-4.8); LYMPHOCYTES % (AUTO) 11.4 % (20.0-44.0); MEAN CORPUSCULAR HGB CONC 34 g/dl (31.0-36.0); MEAN CORPUSCULAR VOLUME 89 fL (82-100); MONOCYTES # (AUTO) 0.6 /CMM (0.1-1.30); MONOCYTES % (AUTO) 5.7 % (2.0-12.0); NEUTROPHILS # (AUTO) 8.8 /CMM (1.8-8.9); NEUTROPHILS % (AUTO) 82.5 % (43.0-81.0); PLATELET COUNT (AUTO) 206 /CMM (150-450); RED BLOOD CELL COUNT(AUTO) 4.15 MIL/uL (4.0-5.2); WHITE BLOOD COUNT (AUTO) 10.7 K/uL (4.3-11.0)
[2020-11-14 07:17] LABS: CALCIUM, SERUM 8.3 mg/dL (8.5-10.1); CREATININE 0.7 mg/dL (0.6-1.3); MAGNESIUM 1.8 mg/dL (1.8-2.4); PHOSPHORUS 1.7 mg/dL (2.5-4.9); POTASSIUM 3.2 mmol/L (3.5-5.1)
[2020-11-14 08:00] VITALS: BP 133/69
--- NOTE | 2020-11-14 08:00 | NUR ---
RN OPENING NOTE RECEIVED PATIENT IN BED, AO X 4 ABLE TO RESPONDS ALL STIMULI. PATIENT SAID PAIN WITH ACTIVE AND REPOSITIONED. SIN IS WARM TO TOUCH, KEEP CLEAN/DRY, EMPTY SREE DRAINAGE ON LLQ . RESPIRATORY EVEN AND UNLABORED ON ROOM AIR. KEPT ELEVATED HOB FOR ENSURE AIRWAY AND ASPIRATION PRECAUTION, ALSO LOWEST BED POSITION. CALL LIGHT WITHIN REACH, WILL CONTINUE TO MONITOR.
[2020-11-14] MEDS ORDERED: NEUTRA PHOS 1 POWD.PACKET PO ONE (10:30)
[2020-11-14] MEDS: POTASSIUM CHLORIDE 20 MEQ POWDER PACKET PO SCH ×2 (10:37→11:55)
[2020-11-14] MEDS: ONDANSETRON HCL/PF 4 MG/2 ML VIAL IVP PRN (11:08)
[2020-11-14 16:00] VITALS: BP 131/77
[2020-11-14] MEDS: KETOROLAC TROMETHAMINE INJ 30 MG/ML VIAL IM PRN (16:49)
--- NOTE | 2020-11-14 18:00 | NUR ---
RN CLOSING NOTE PATIENT IN ROOM, REMAINS AO X 4. C/O MIGRAINE AND GIVEN TORADOL. SKIN IS WARM TO TOUCH, STILL REMAIN SREE FROM S/P LAP AND 30 CC OUT PUT DRESSING CLEAN/DRY. RESPIRATORY EVEN AND UNLABORED ON ROOM AIR. KEPT ELEVATED HOB FOR ENSURE AIRWAY AND ASPIRATION PRECAUTION ALSO LOWEST BED POSITION FOR SAFETY. WILL ENDORSE ADVANCED MANAGER.
[2020-11-14 20:00] VITALS: BP 118/64
--- NOTE | 2020-11-14 21:30 | NUR ---
RN NOTES RECEIVED PATIENT IN BED, ALERT AND ORIENTED X4, STABLE ON ROOM AIR, S/P LAP APPY, SREE DRAIN WITH SEROSANGUINEOUS DRAINAGE, AMBULATES TO TOILET, CLEAR LIQUID, NOT PASSING GAS YET, IVF AT 125 ML/HR, WILL CONTINUE TO MONITOR.
[2020-11-15] MEDS: PIPERACILLIN /TAZOBACTAM 3.375 G in IV D5W 100 ML IV SCH ×3 (02:03→18:17)
[2020-11-15] MEDS: IV D5/0.45 NACL 1,000 ML IV PRN ×2 (05:52→16:37)
[2020-11-15 06:39] LABS: BASOPHILS % (AUTO) 0.2 % (0.0-2.0); EOSINOPHILS % (AUTO) 1.1 % (0.0-6.0); HEMATOCRIT 38 % (33-45); HEMOGLOBIN 12.5 g/dL (11.5-14.8); LYMPHOCYTES # (AUTO) 1.2 /CMM (0.8-4.8); LYMPHOCYTES % (AUTO) 13.1 % (20.0-44.0); MEAN CORPUSCULAR HGB CONC 33 g/dl (31.0-36.0); MEAN CORPUSCULAR VOLUME 88 fL (82-100); MONOCYTES # (AUTO) 0.7 /CMM (0.1-1.30); NEUTROPHILS # (AUTO) 6.8 /CMM (1.8-8.9); NEUTROPHILS % (AUTO) 77.6 % (43.0-81.0); PLATELET COUNT (AUTO) 215 /CMM (150-450); RED BLOOD CELL COUNT(AUTO) 4.24 MIL/uL (4.0-5.2); WHITE BLOOD COUNT (AUTO) 8.8 K/uL (4.3-11.0)
--- NOTE | 2020-11-15 07:00 | NUR ---
MS RN OPENING NOTE RECEIVED PT AWAKE IN BED AT THIS TIME. A/OX4. PT ABLE TO MAKE NEEDS KNOWN. NO SOB NOTED. CO C/O PAIN AT THIS TIME, NO S/O OF ANY ACUTE DISTRESS NOTED. IV ACCESS NOTED IN LEFT HAND G#20 INTACT, PATENT AND FLUSHING WELL. PT NOTED WITH SREE, CLEAN, DRY AND DRAINING TO GRAVITY SEROSANGUINEOUS FLUID. SAFETY PRECAUTIONS IN PLACE AND MAINTAINED AT ALL TIMES. BED IN LOWEST LOCKED POSITION, HOB ELEVATED, SIDE RAILS UP X2, CALL LIGHT AND TABLE WITHIN REACH. WILL CONTINUE TO MONITOR
[2020-11-15 07:06] LABS: CALCIUM, SERUM 8.7 mg/dL (8.5-10.1); CHLORIDE 104 mmol/L (98-107); CREATININE 0.6 mg/dL (0.6-1.3); GLUCOSE 117 mg/dL (74-106); PHOSPHORUS 2.3 mg/dL (2.5-4.9); POTASSIUM 3.2 mmol/L (3.5-5.1); SODIUM SERUM 138 mmol/L (136-145); UREA NITROGEN, BLOOD 6 mg/dL (7-18)
--- NOTE | 2020-11-15 07:22 | NUR ---
RN NOTES ALERT AND ORIENTED X4, STABLE ON ROOM AIR, ABDOMINAL DISCOMFORT WHEN GETTING OUT OF BED, X2 LAP APPY SITES, WITH STERI-STRIPS, SREE DRAIN 10 CC SEROSANGUINEOUS DRAINAGE, PASSING GAS, NO VOMITING, TOLERATING CLEAR LIQUID DIET, ASSISTED WHEN GETTING OUT OF BED, ENCOURAGE AMBULATION.
[2020-11-15 07:47] LABS: CARBON DIOXIDE 23 mmol/L (21-32)
[2020-11-15 08:00] VITALS: BP 141/85
[2020-11-15] MEDS: POTASSIUM CHLORIDE 20 MEQ POWDER PACKET PO SCH ×2 (10:56→12:07)
[2020-11-15] MEDS ORDERED: NEUTRA PHOS 1 POWD.PACKET PO ONE (11:00)
[2020-11-15] MEDS: KETOROLAC TROMETHAMINE INJ 30 MG/ML VIAL IM PRN (13:26)
--- NOTE | 2020-11-15 13:26 | NUR ---
PT C/O OF ACHING ABDOMINAL PAIN OF 7/10. PT NOTED GRASPING, GRIMACING AND MOANING. VS WNL. PER PT REQUEST TORADOL 30MG IM Q6HR FOR PAIN ADMINISTERED AT THIS TIME. WILL CONTINUE TO MONITOR
--- NOTE | 2020-11-15 13:27 | NUR ---
RECEIVED ORDERS FROM JAYDEN DE LA ROSA TO ADVANCE PT'S DIET TOLERATED AT THIS TIME. ORDERS READ BACK AND ADCANCED FROM CLEAR LIQUID TO FULL LIQUID. WILL CONTINUE TO MONITOR
[2020-11-15 15:43] VITALS: BP 141/92
--- NOTE | 2020-11-15 17:30 | NUR ---
PRISCILA ([phone]), PT'S DAUGHTER CALLED AND WAS UPDATED ON PT'S STATUS. WILL CONTINUE WITH PLAN OF CARE
--- NOTE | 2020-11-15 18:19 | NUR ---
PT REQUESTED TO REMOVE IV STATING "IT BOTHERS ME", IV ACCESS REMOVED. NO S/O BLEEING OR INFILTRATION NOTED. PRESSURE APPLIED SECURED WITH GAUZE AND TAPE. REINSERTED NEW IV IN RIGHT WRIST G#22, GOOD BLOOD RETURN NOTED, INTACT, PATENT AND FLUSHING WELL. WILL CONTINUE TO MONITOR
--- NOTE | 2020-11-15 18:33 | NUR ---
PT TOLERATED FULL LIQUID DIET WELL, NO N/V REPORTED. DIET ADVANCED TO MECHANICAL SOFT PER ORDER. WILL CONTINUE TO MONITOR
--- NOTE | 2020-11-15 18:48 | NUR ---
MS RN CLOSING NOTES PT AWAKE IN BED AT THIS TIME. PT REMAINED STABLE THROUGHOUT SHIFT. ALL CARE, NEEDS, MEDICATIONS AND TREATMENT ADMINISTERED ANTICIPATED PER ORDER. LINENS KEPT CLEAN. SAFETY PRECAUTIONS IN PLACE AND MAINTAINED AT ALL TIMES. BED IN LOWEST LOCKED POSITION, HOB ELEVATED, SIDE RAILS UPX2, CALL LIGHT AND TABLE WITHIN REACH. WILL ENDORSE TO FORGE SHOP MACHINE REPAIRER NURSE FOR REAGAN
--- NOTE | 2020-11-15 19:20 | NUR ---
RN opening notes Received Pt from morning nurse. Pt is sitting in bed comfortably talking on her cellphone. Pt is alert and orientedX4. Respiration is normal in room air. NO SOB. No S/S of distress noted. Pt informed that Pt wanted to go home. IV site at L wrist# 22 is clean, intact and infusing well zosyn abx. Pt just had SREE drain removed today, the dressing is clean, intact and dry. Safety precautions is maintained. Bed at low position, brakes locked, side rails upX2, hob elevated and call light is within reach. Will continue to monitor.
[2020-11-15 20:00] VITALS: BP 143/82
--- NOTE | 2020-11-15 20:45 | NUR ---
RN notes Pt wanted to go home now. Spoke with Pt and Pt's daughter Elaise. Pt stated " I want to go home now." Explained risks and benefits. Informed and notified Dr. Nelson that Pt wanted to go home now. informed that Dr. Jansen SX informed that Pt needed 5 days of IV abx. Explained and informed to Pt and Pt's daughter. Pt agree to stay and verbalized understanding. Charge nurse is aware and informed. Will continue to monitor.
[2020-11-16] MEDS: PIPERACILLIN /TAZOBACTAM 3.375 G in IV D5W 100 ML IV SCH ×2 (01:23→10:50)
--- NOTE | 2020-11-16 03:42 | NUR ---
RN notes Pt is complaining of mild back pain and requesting tylenol. Administered tylenol 325 mg/ 2 tabs/ po/prn as ordered for pain per pt requested. Safety precautions is maintained. Will continue to monitor.
[2020-11-16 06:28] LABS: BASOPHILS # (AUTO) 0.1 /CMM (0.0-0.2); BASOPHILS % (AUTO) 0.7 % (0.0-2.0); EOSINOPHILS % (AUTO) 4.7 % (0.0-6.0); HEMATOCRIT 38 % (33-45); HEMOGLOBIN 12.8 g/dL (11.5-14.8); LYMPHOCYTES # (AUTO) 1.2 /CMM (0.8-4.8); LYMPHOCYTES % (AUTO) 15.8 % (20.0-44.0); MEAN CORPUSCULAR HGB CONC 34 g/dl (31.0-36.0); MEAN CORPUSCULAR VOLUME 87 fL (82-100); MONOCYTES # (AUTO) 0.6 /CMM (0.1-1.30); NEUTROPHILS # (AUTO) 5.2 /CMM (1.8-8.9); NEUTROPHILS % (AUTO) 70.8 % (43.0-81.0); PLATELET COUNT (AUTO) 253 /CMM (150-450); RED BLOOD CELL COUNT(AUTO) 4.34 MIL/uL (4.0-5.2); WHITE BLOOD COUNT (AUTO) 7.3 K/uL (4.3-11.0)
[2020-11-16 06:44] LABS: CALCIUM, SERUM 8.9 mg/dL (8.5-10.1); CREATININE 0.7 mg/dL (0.6-1.3); MAGNESIUM 2.1 mg/dL (1.8-2.4); PHOSPHORUS 3.3 mg/dL (2.5-4.9); POTASSIUM 3.3 mmol/L (3.5-5.1)
--- NOTE | 2020-11-16 06:59 | NUR ---
RN closing notes Pt is sitting in bed comfortably. Pt is alert and orientedX4. Respiration is normal in room air. NO SOB. No S/S of distress noted. IV site at L wrist# 22 is clean, intact and infuising well D5 1/2 NS @ 125 ml/hr. Vs is stable. Afebrile. Routine meds were given as ordered. Safety precautions is maintained. Bed at low position, brakes locked, side rails upX2, hob elevated and call light is within reach. Will endorse to morning nurse for REAGAN.
--- NOTE | 2020-11-16 07:41 | NUR ---
MSRN OPENING NOTES Pt is sitting in bed comfortably. Pt is alert and orientedX4. Respiration is normal in room air. NO SOB. No S/S of distress noted. IV site at L wrist# 22 is clean, intact and infuising well D5 1/2 NS @ 125 ml/hr. Vs is stable. Afebrile. Safety precautions is maintained. Bed at low position, brakes locked, side rails upX2, hob elevated and call light is within reach.
[2020-11-16 07:59] VITALS: BP 133/77
[2020-11-16] MEDS ORDERED: POTASSIUM CHLORIDE 20 MEQ TAB.PRT.SR PO SCH (10:00)
[2020-11-16] MEDS ORDERED: CIPR500S3 PO (15:31)
[2020-11-16] MEDS ORDERED: METR500T PO (15:31)
== END 2020-11-16 15:30 | disposition home or self-care (01) | DRG 233 ==
LOC: ER 10:51 → MED 15:21
PROVIDERS: ADMIT Student in an Organized Health Care Education/Training Program; ATTEND Student in an Organized Health Care Education/Training Program
PROC: 0DTJ4ZZ Resection of Appendix, Percutaneous Endoscopic Approach (ICD-10-PCS; principal; 2020-11-13)
PROC: 0W9J40Z Drainage of Pelvic Cavity with Drainage Device, Percutaneous Endoscopic Approach (ICD-10-PCS; 2020-11-13)
DX: K35.30 Acute appendicitis with localized peritonitis, without perforation or gangrene (principal); K76.0 Fatty (change of) liver, not elsewhere classified; E66.9 Obesity, unspecified; Z85.41 Personal history of malignant neoplasm of cervix uteri; G43.909 Migraine, unspecified, not intractable, without status migrainosus; Z90.710 Acquired absence of both cervix and uterus; Z68.29 Body mass index [BMI] 29.0-29.9, adult; K43.2 Incisional hernia without obstruction or gangrene; N73.6 Female pelvic peritoneal adhesions (postinfective)
CPT/HCPCS: 36415; 71045-TC; 80048-TC; 80061-TC; 80076-TC; 83690-TC; 83735-TC; 84100-TC; 84484-TC; 84703-TC; 85025-TC; 85610-TC; 85730-TC; 87081-TC; 88304-TC; C9803; G0378; J0690; J1170; J1885; J2250; J2270; J2405; J2543; J2704; J2765; J3010; J3480; J3490; J7030; J7060

== ENCOUNTER 2020-12-11 13:34 | Inpatient (IN) | payer OTHER ==
[~2020-12-11] VITALS: Ht 167.6 cm; Wt 73.9 kg
[~2020-12-11 13:34] MED LIST: CIPR500S3 PO; METR500T PO; OMEP20CA15 PO
--- NOTE | 2020-12-11 13:50 | NUR ---
The patient is bib her son for c/o "Had Appy done 3wks ago since then NOT feeling well nausea/weak and chills". The patient denies pain. In room air and deneis sob. Respiration regular and unlabored. The patient is attached to the monitor. Warm blanket provided for comfort. Will continue to monitor the patient.
[2020-12-11] MEDS ORDERED: ONDANSETRON 4 MG TAB.RAPDIS ONE (13:56)
[2020-12-11] MEDS ORDERED: ONDANSETRON 4 MG TAB.RAPDIS SL ONE (14:00)
[2020-12-11 14:08] LABS: BASOPHILS % (AUTO) 0.3 % (0.0-2.0); HEMATOCRIT 37 % (33-45); HEMOGLOBIN 12.2 g/dL (11.5-14.8); LYMPHOCYTES # (AUTO) 1.2 /CMM (0.8-4.8); LYMPHOCYTES % (AUTO) 8.2 % (20.0-44.0); MEAN CORPUSCULAR HGB CONC 33 g/dl (31.0-36.0); MEAN CORPUSCULAR VOLUME 87 fL (82-100); MONOCYTES # (AUTO) 0.9 /CMM (0.1-1.30); MONOCYTES % (AUTO) 5.8 % (2.0-12.0); NEUTROPHILS # (AUTO) 12.8 /CMM (1.8-8.9); NEUTROPHILS % (AUTO) 84.7 % (43.0-81.0); PLATELET COUNT (AUTO) 280 /CMM (150-450); RED BLOOD CELL COUNT(AUTO) 4.24 MIL/uL (4.0-5.2); WHITE BLOOD COUNT (AUTO) 15.1 K/uL (4.3-11.0)
[2020-12-11 14:17] LABS: CALCIUM, SERUM 8.9 mg/dL (8.5-10.1); CREATININE 0.8 mg/dL (0.6-1.3); POTASSIUM 3.8 mmol/L (3.5-5.1)
--- NOTE | 2020-12-11 14:20 | NUR ---
urine collected and sent to the lab
--- NOTE | 2020-12-11 14:21 | NUR ---
The patient is taken for ct. Left ER floor in stable condition.
[2020-12-11 14:22] LABS: ALBUMIN 3.2 g/dL (3.4-5.0); BILIRUBIN,DIRECT 0.2 mg/dL (0.0-0.2); BILIRUBIN,TOTAL 0.6 mg/dL (0.2-1.0)
--- NOTE | 2020-12-11 14:25 | NUR ---
THE PATIENT IS BACK FROM CT AND IN STABLE CONDITION.
[2020-12-11 14:29] LABS: BILIRUBIN,URINE SMALL (NEGATIVE); COLOR,URINE DARK YELLOW (YELLOW); LEUKOCYTE ESTERASE ,URINE Negative (NEGATIVE); NITRITE, URINE Negative (NEGATIVE); PH,URINE 5.5 (5.0-8.0); PROTEIN,URINE 30 mg/dl (NEGATIVE); UGLUCOSE Negative (NEGATIVE); UROBILINOGEN,URINE 0.2 EU/dL (0.2)
[2020-12-11 14:38] LABS: BACTERIA,URINE Few /HPF (None Seen); MUCUS,URINE Moderate /LPF (None Seen); SQUAMOUS EPITHELIAL CELL,UR Few /HPF (None Seen)
--- NOTE | 2020-12-11 15:56 | NUR ---
PAGED [facility].
[2020-12-11] MEDS ORDERED: SUMA50TA PO (15:59)
[2020-12-11] MEDS ORDERED: CEFTRIAXONE 1GM BAG (ER ONLY) 50 ML IV ONE ×2 (16:00→16:16)
[2020-12-11] MEDS ORDERED: IV NS 0.9% 1,000 ML BAG IV ONE (16:00)
--- NOTE | 2020-12-11 17:03 | NUR ---
Report given to REBECCA Vyas
[2020-12-11] MEDS ORDERED: Z GUARD REMEDY 2 OZ OINT TP PRN (17:30)
[2020-12-11] MEDS ORDERED: HYDROCODONE/APAP 5/325MG TABLET PO PRN (17:30)
[2020-12-11] MEDS ORDERED: ZOLPIDEM TARTRATE 5 MG TABLET PO PRN (17:30)
[2020-12-11] MEDS ORDERED: MAGNESIUM HYDROXIDE 30 ML UDC PO PRN (17:30)
[2020-12-11] MEDS ORDERED: MAG HYDROX/AL HYDROX/SIMETH 30 ML UDC PO PRN (17:30)
[2020-12-11] MEDS ORDERED: MORPHINE SULFATE INJ 2 MG/ML DISP.SYRIN IV PRN (17:30)
[2020-12-11] MEDS ORDERED: ONDANSETRON HCL/PF 4 MG/2 ML VIAL IVP PRN (17:30)
--- NOTE | 2020-12-11 17:56 | NUR ---
THE PATIENT IS TRANSFERED TO [facility] PER POLICY AND IN STABLE CONDITION.
--- NOTE | 2020-12-11 18:10 | NUR ---
MS NEON SIGN MAKER NOTES PATIENT ADMITTED FROM EMERGENCY ROOM, REPORT GIVEN BY ANGIE RN. PATIENT ALERT ORIENTED X 4 . NO ACUTE DISTRESS NOTED. BREATHING UNLABORED. NO SOB NOTED. RIGHT UPPER ARM MID LINE G 18 PATENT AND INTACT, NO REDNESS, NO SWELLING NOTED. NEEDS ATTENDED .ORIENTED TO THE ROOM , SHOW HOW TO USE CALL LIGHT, PLACED WITHIN REACH. SAFETY MEASURES IN PLACE. WILL CONTINUE TO MONITOR ACCORDINGLY.
[2020-12-11] MEDS: IV NS 0.9% 1,000 ML IV SCH (18:52)
--- NOTE | 2020-12-11 19:00 | NUR ---
MS RN NOTES PATIENT IN BED ALERT ORIENTED X 4 . HEAD OF BED ELEVATED. NO ACUTE DISTRESS NOTED. BREATHING UNLABORED. NO SOB NOTED. RIGHT UPPER ARM MID LINE G 18 PATENT AND INTACT, NO REDNESS, NO SWELLING NOTED. NEEDS ATTENDED .ORIENTED TO THE ROOM , CALL LIGHT,PLACED WITHIN REACH. SAFETY MEASURES IN PLACE. WILL ENDORSE TO NIGHT NURSE FOR CONTINUITY OF CARE AND ADMISSION.
[2020-12-11] MEDS: PIPERACILLIN /TAZOBACTAM 3.375 G in IV D5W 50 ML IV SCH ×2 (19:01→23:50)
--- NOTE | 2020-12-11 19:15 | NUR ---
MS RN OPENING NOTE PATIENT RECEIVED IN BED WITH EYES CLOSED, EASILY AROUSED. PATIENT DOES NOT COMPLAIN OF NAUSEA AT THIS TIME, BUT COMPLAINS OF HEADACHE. PATIENT IS CURRENTLY NPO. TOLERATING ROOM AIR AT 98%, BREATHING EVEN AND UNLABORED. PATIENT IS ITALIAN SPEAKING, A/ O X 4. IV FLUIDS INFUSING WELL. SAFETY MEASURES IN PLACE: CALL LIGHT WITHIN REACH, HOB ELEVATED, SIDE RAILS UP. WILL MONITOR PATIENT CLOSELY.
[2020-12-11 20:00] VITALS: BP 127/82
[2020-12-11] MEDS ORDERED: SUMATRIPTAN SUCCINATE 25 MG TABLET PO PRN (20:00)
--- NOTE | 2020-12-11 20:10 | NUR ---
MS RN NOTE PATIENT TEMPERATURE 99.2. COOLING MEASURES STARTED.
--- NOTE | 2020-12-11 21:00 | NUR ---
MS RN NOTE PATIENT COMPLAINING OF MIGRAINE AND REQUESTING SUMATRIPTAN, NOTIFIED DENTAL HYGIENIST MD D/T NPO STATUS. INSTRUCTED BY MD TO FIND ALTERNATIVE ROUTE D/T STRICT NPO STATUS. CHARGE NURSE AWARE.
--- NOTE | 2020-12-11 21:10 | NUR ---
MS RN NOTE RECHECKED TEMP 101.5. NOTIFIED MD D/T NPO STATUS. ORDERED TYLENOL SUPPOSITORY. ORDER READ BACK AND CARRIED OUT. COOLING MEASURES STILL IN PLACE.
--- NOTE | 2020-12-11 21:20 | NUR ---
MS RN NOTE CALLED PHARMACY TO CONFIRM ALTERNATIVE ROUTES FOR SUMATRIPTAN. NOTIFIED CHARGE NURSE, NO ALTERNATIVE STOCKED IN THE UNIT. NURSING PRODUCTION FLOATER NOTIFIED, WILL LOOK AT OTHER FLOORS FOR STOCK.
[2020-12-11] MEDS ORDERED: ACETAMINOPHEN 325 MG/SUPP.RECT RC PRN (21:30)
[2020-12-11] MEDS ORDERED: ACETAMINOPHEN 650 MG/SUPP.RECT RC ONE (21:45)
[2020-12-11] MEDS ORDERED: ACETAMINOPHEN 650 MG/SUPP.RECT RC PRN (22:00)
--- NOTE | 2020-12-11 22:05 | NUR ---
ADMINISTERED TYLENOL SUPPOSITORY. WILL RE-ASSESS PATIENT'S TEMPERATURE.
--- NOTE | 2020-12-11 23:00 | NUR ---
MS RN NOTE ALTERNATIVE FOUND BY NURSING SUGAR CANE PLANTING EQUIPMENT OPERATOR: SUMATRIPTAN 6 MG/ 0.5 ML SQ. NOTIFIED PHARMACY.
--- NOTE | 2020-12-11 23:10 | NUR ---
TEMP RECHECKED: 98.2 F. WILL CONTINUE TO MONITOR PATIENT'S BODY TEMP
[2020-12-11] MEDS ORDERED: SUMATRIPTAN SUCCINATE 6 MG/0.5 ML VIAL SQ PRN (23:30)
[2020-12-12] MEDS ORDERED: SUMATRIPTAN SUCCINATE 6 MG/0.5 ML VIAL SQ ONE (02:19)
--- NOTE | 2020-12-12 02:47 | NUR ---
SUMATRIPTAN 6MG SUBCUTANEOUS GIVEN FOR MIGRAINE HEADACHE
[2020-12-12] MEDS: PIPERACILLIN /TAZOBACTAM 3.375 G in IV D5W 50 ML IV SCH ×4 (06:09→23:51)
[2020-12-12 06:36] LABS: BASOPHILS % (AUTO) 0.3 % (0.0-2.0); EOSINOPHILS % (AUTO) 1.2 % (0.0-6.0); HEMATOCRIT 35 % (33-45); HEMOGLOBIN 11.8 g/dL (11.5-14.8); LYMPHOCYTES # (AUTO) 1.6 /CMM (0.8-4.8); LYMPHOCYTES % (AUTO) 14.6 % (20.0-44.0); MEAN CORPUSCULAR HGB CONC 34 g/dl (31.0-36.0); MEAN CORPUSCULAR VOLUME 88 fL (82-100); MONOCYTES # (AUTO) 0.9 /CMM (0.1-1.30); MONOCYTES % (AUTO) 7.8 % (2.0-12.0); NEUTROPHILS # (AUTO) 8.2 /CMM (1.8-8.9); NEUTROPHILS % (AUTO) 76.1 % (43.0-81.0); PLATELET COUNT (AUTO) 271 /CMM (150-450); WHITE BLOOD COUNT (AUTO) 10.8 K/uL (4.3-11.0)
[2020-12-12] MEDS: IV NS 0.9% 1,000 ML IV SCH ×2 (06:39→21:46)
[2020-12-12 07:23] LABS: CALCIUM, SERUM 8.6 mg/dL (8.5-10.1); CREATININE 0.7 mg/dL (0.6-1.3); PHOSPHORUS 3.3 mg/dL (2.5-4.9); POTASSIUM 3.7 mmol/L (3.5-5.1)
--- NOTE | 2020-12-12 07:23 | NUR ---
MS RN CLOSING NOTE PATIENT IN BED, SITTING UP. AWAKE, A/O X 4. BREATHING EVEN AND UNLABORED. TOLERATING ROOM AIR AT 98%. IV FLUIDS INFUSING WELL, MIDLINE ACCESS PATENT AND INTACT. ALL NEEDS MET AND ATTENDED. PATIENT STILL NPO. MIGRAINE HAVE SUBSIDED. ATB THERAPY FULFILLED. SAFETY MEASURES MAINTAINED. ENDORSED TO DAY SHIFT NURSE FOR REAGAN.
--- NOTE | 2020-12-12 07:36 | NUR ---
MS/RN OPENING NOTES RECEIVED PATIENT AWAKE ALERT AND ORIENTED X4. PATIENT IN ROOM AIR, PATIENT IN RESPIRATORY DISTRESS NOTED. NO COMPLAINED OF PAIN NOTED AT THIS TIME. SEEN BY DR. SHANICE BO ADVANCE DIET TOLERATED, CLEAR LIQUID FOR THE START. NOTED AND CARRIED OUT. WILL CONTINUE TO MONITOR. Addendum: 12/12/20 at 0901 by ROBBIE JONES RN ERROR
--- NOTE | 2020-12-12 07:36 | NUR ---
MS/RN OPENING NOTES RECEIVED PATIENT AWAKE ALERT AND ORIENTED X4. PATIENT IN ROOM AIR, PATIENT IN NO APPARENT RESPIRATORY DISTRESS NOTED. NO COMPLAINED OF PAIN NOTED AT THIS TIME. SEEN BY DR. PRASAD AND ORDER ADVANCE DIET TOLERATED, CLEAR LIQUID FOR THE START. NOTED AND CARRIED OUT. WILL CONTINUE TO MONITOR.
[2020-12-12 07:56] LABS: MAGNESIUM 2.3 mg/dL (1.8-2.4)
[2020-12-12 08:00] VITALS: BP 120/68
[2020-12-12] MEDS: ACETAMINOPHEN 325 MG TABLET PO PRN (14:04)
[2020-12-12 16:00] VITALS: BP 111/71
--- NOTE | 2020-12-12 19:30 | NUR ---
MS RN CLOSING NOTE PATIENT IN BED, SITTING UP. AWAKE, A/O X 4. BREATHING EVEN AND UNLABORED. IV FLUIDS INFUSING WELL, MIDLINE ACCESS PATENT AND INTACT. ALL NEEDS MET AND ATTENDED. PATIENT ADVANCED TO SOFT DIET. SAFETY MEASURES MAINTAINED. WILL ENDORSE TO SQUEEGEER AND FORMER FOR CONTINUITY OF CARE.
[2020-12-12 20:00] VITALS: BP 114/81
--- NOTE | 2020-12-12 23:22 | NUR ---
MS/TELE/RN PATIENT IS SLEEPING AT THIS TIME, APPEAR COMFORTABLE, BREATHING EVEN AND UNLABORED, CALL LIGHT IN REACH, WILL CONTINUE TO MONITOR.
[2020-12-13] MEDS: ACETAMINOPHEN 325 MG TABLET PO PRN (01:23)
[2020-12-13] MEDS: PIPERACILLIN /TAZOBACTAM 3.375 G in IV D5W 50 ML IV SCH (05:56)
--- NOTE | 2020-12-13 06:35 | NUR ---
MS/TELE/RN PATIENT IS STILL SLEEPING AT THIS TIME, APPEAR COMFORTABLE, NO SIGNS OF DISTRESS NOTED, ALL NEEDS ATTENDED AT THIS TIME, WILL CONTINUE TO MONITOR.
[2020-12-13 06:43] LABS: BASOPHILS % (AUTO) 0.2 % (0.0-2.0); EOSINOPHILS % (AUTO) 0.9 % (0.0-6.0); HEMATOCRIT 32 % (33-45); HEMOGLOBIN 10.8 g/dL (11.5-14.8); LYMPHOCYTES # (AUTO) 1.6 /CMM (0.8-4.8); LYMPHOCYTES % (AUTO) 14.1 % (20.0-44.0); MEAN CORPUSCULAR HGB CONC 33 g/dl (31.0-36.0); MEAN CORPUSCULAR VOLUME 87 fL (82-100); MONOCYTES # (AUTO) 0.8 /CMM (0.1-1.30); MONOCYTES % (AUTO) 6.8 % (2.0-12.0); NEUTROPHILS # (AUTO) 8.9 /CMM (1.8-8.9); PLATELET COUNT (AUTO) 289 /CMM (150-450); RED BLOOD CELL COUNT(AUTO) 3.72 MIL/uL (4.0-5.2); WHITE BLOOD COUNT (AUTO) 11.4 K/uL (4.3-11.0)
[2020-12-13 07:05] LABS: CALCIUM, SERUM 8.8 mg/dL (8.5-10.1); CREATININE 0.7 mg/dL (0.6-1.3); POTASSIUM 3.7 mmol/L (3.5-5.1)
[2020-12-13 08:00] VITALS: BP 123/79
--- NOTE | 2020-12-13 08:00 | NUR ---
MS RN OPENING NOTES RECEIVED PATIENT LYING IN BED, AWAKE. A/O X4. PATIENT ON ROOM AIR - TOLERATING WELL. NO SOB NOTED. NO COMPLAINTS OF PAIN AT THIS TIME. IV ACCESS TO RIGHT UPPER ARM - MIDLINE - RUNNING NS @ 75ML/HR. SAFETY PRECAUTIONS IMPLEMENTED. CALL LIGHT WITHIN REACH. WILL CONTINUE TO MONITOR.
--- NOTE | 2020-12-13 09:30 | NUR ---
MS RN AMA NOTE PATIENT DISCHARGED AMA. PATIENT SIGNED AMA FORM - PATIENT MADE AWARE OF RISKS FOR LEAVING WITHOUT NECESSARY TREATMENT. PATIENT STATED SHE WOULD RATHER GET TREATMENT AT [facility]. IV REMOVED AND WRISTBAND REMOVED. PATIENT ACCOMPANIED TO THE LOBBY BY DAUGHTER, PRISCILA.
--- NOTE | 2020-12-13 12:07 | NUR ---
INCIDENT REPORT CREATED ID NUMBER: [id number]
== END 2020-12-13 09:25 | disposition left against medical advice (07) | DRG 252 ==
LOC: ER 13:36 → MED 17:26
PROVIDERS: ADMIT Family Medicine; ATTEND Family Medicine
PROC: 05HB33Z Insertion of Infusion Device into Right Basilic Vein, Percutaneous Approach (ICD-10-PCS; principal; 2020-12-11)
DX: K91.89 Other postprocedural complications and disorders of digestive system (principal); K76.0 Fatty (change of) liver, not elsewhere classified; E44.1 Mild protein-calorie malnutrition; E86.1 Hypovolemia; N13.1 Hydronephrosis with ureteral stricture, not elsewhere classified; E87.1 Hypo-osmolality and hyponatremia; Z90.49 Acquired absence of other specified parts of digestive tract; K36 Other appendicitis; Z90.710 Acquired absence of both cervix and uterus; E66.9 Obesity, unspecified; Z85.41 Personal history of malignant neoplasm of cervix uteri; G43.909 Migraine, unspecified, not intractable, without status migrainosus; D72.829 Elevated white blood cell count, unspecified; R73.9 Hyperglycemia, unspecified; Y83.8 Other surgical procedures as the cause of abnormal reaction of the patient, or of later complication, without mention of misadventure at the time of the procedure; Y92.009 Unspecified place in unspecified non-institutional (private) residence as the place of occurrence of the external cause
CPT/HCPCS: 36410; 36415; 80048-TC; 80061-TC; 80076-TC; 81001; 83605-TC; 83690-TC; 83735-TC; 84100-TC; 84703-TC; 85025-TC; 85610-TC; 85730-TC; 87040-TC; 87081-TC; 87086-TC; C1751; C9803; G0378; J0696; J2405; J2543; J3030; J7030; J7060; Q0162